=== PATIENT | female | born 1970 | race Caucasian/White ===

== ENCOUNTER 2017-07-17 16:08 | Observation (INO) ==
[2017-07-17] MEDS ORDERED: 0.9 % Sodium Chloride 1,000 ML IVC ONE (17:52)
[2017-07-17] MEDS ORDERED: Vancomycin 1,000 MG in D5% in Water 250 ML IVPB ONE (17:52)
[2017-07-17] MEDS ORDERED: Ondansetron 4 MG/2 ML VIAL IVP ONE (17:53)
[2017-07-17] MEDS ORDERED: *HR* Morphine 2 MG/ML SYRINGE IVP ONE (17:53)
[2017-07-17] MEDS ORDERED: Lidocaine/EPI 1:100k 1% 20 ML VIAL INFILT ONE (17:54)
--- NOTE | 2017-07-17 17:57 | Emergency Department Note ---
Disposition Clinical Impression: Abscess Cellulitis Qualifiers: Site of cellulitis: trunk Site of cellulitis of trunk: groin Qualified Code(s) : L03.314 - Cellulitis of groin Disposition: Admitted As Inpatient Condition: Fair Referrals: Ivy Rivera FEEDER DRIVER [Primary Care Provider] - Forms: ED Satisfaction Letter Time of Disposition: 19:29 General Adult HPI - General Chief complaint: ED Wound/Laceration Stated complaint: "possible infection" Time Seen by Provider: 07/17/17 17:30 Source: patient Mode of arrival: ambulatory Limitations: no limitations Nursing Notes Reviewed: Yes Vital Signs Reviewed: Yes - History of Present Illness HPI Narrative: 46-year-old female with a history of melanoma status post surgery presents for evaluation of a possible abscess and infection. Patient states that she had surgery to remove a melanoma on her back on June 19. States she had a wound VAC placed following that surgery related to the extent of the melanoma. Patient also had bilateral inguinal lymph nodes that were investigated at that time. Patient denies any metastatic lymph nodes. Notes that she has been following up as directed in the wound clinic. States that on Monday redness and swelling in the inguinal region has persisted. States that the swelling and redness has significantly increased in the past 24 hours. Notes worsening pain at that time. Reports subjective fever and chills. Denies any nausea vomiting or abdominal pain. Denies any dysuria or hematuria. No problems with her bowels. Patient is a nondiabetic. Pain Scale: 0 - Related Data Home Medications Medication Instructions Recorded Confirmed OxyCODONE/APAP 5/325 [Percocet 1 each PO AD 07/17/17 07/17/17 5/325 MG] Allergies Allergy/AdvReac Type Severity Reaction Status Date / Time No Known Allergies Allergy Verified 07/17/17 16:27 All systems ED: reviewed and negative except as stated. Constitutional: Reports: as per HPI, fever, chills Eyes: Reports: as per HPI ENT ED: Reports: as per HPI Cardiovascular: Reports: as per HPI. Denies: chest pain Respiratory: Reports: as per HPI. Denies: dyspnea Gastrointestinal: Reports: as per HPI, abdominal pain. Denies: nausea, vomiting Genitourinary: Reports: as per HPI Musculoskeletal: Reports: as per HPI Integumentary: Reports: as per HPI Neurological: Reports: as per HPI Psychiatric: Reports: as per HPI Endocrine: Reports: as per HPI Hematological/Lymphatic: Reports: as per HPI Allergic/Immunologic: Reports: as per HPI Past Medical History - Past Medical History Medical history: Reports: no medical history Surgical history: Reports: cancer surgery Psychiatric history: Reports: no psych history - Social History Smoking Status: Current every day smoker Smokeless Tobacco Status: No Alcohol use: Reports: occasionally Drug use: Reports: none Physical Exam - General Limitations: no limitations General appearance: alert, in no apparent distress - Head Head exam: atraumatic, normocephalic, normal inspection - Eye Eye exam: Present: normal appearance, PERRL, EOMI - ENT ENT exam: normal exam, mucous membranes moist - Neck Neck exam: Present: normal inspection - Chest Chest inspection: Present: normal inspection. Absent: symmetric chest wall rise - Respiratory Respiratory exam: Absent: respiratory distress, accessory muscle use - Cardiovascular Cardiovascular exam: Present: regular rate, normal rhythm - Abdominal Exam Abdominal exam: Present: soft, Non-Tender, other (Diffuse lower area of erythema and warmth and a fluctuant area along the right inguinal region consistent with possible abscess. Healed incision over the right inguinal region.). Absent: distention, guarding, rebound - Extremities Exam Extremities exam: Present: normal inspection. Absent: pedal edema - Back Exam Back exam: Present: other (Functional wound VAC in place.) - Neurological Exam Neurological exam: Present: alert, oriented X3 - Skin Skin exam: Present: warm, dry, intact, normal color Course Course Narrative: Patient seen and examined. The patient's in no acute distress. Patient does have signs and symptoms consistent with cellulitis and likely abscess. Patient' s bedside ultrasound that show a fluid collection which will attempt to be drained in the emergency department. Patient will also receive labs as well as IV antibiotics and symptomatic therapy. Patient would likely need admission given the location and the rapid progression of symptoms. - Reevaluation(s) Reevaluation #1: Patient had the area of concern in size and drained at bedside. Expressed a fair amount of serous fluid. Patient tolerated procedure well. Packing was placed. Given the degree of erythema overlying the area of concern antibiotics were initiated. Patient will be admitted for IV antibacterial therapy. Time: 19:23 Vital Signs Temperature 98.6 F 07/17/17 16:23 Pulse Rate 113 07/17/17 16:23 Respiratory Rate 16 07/17/17 16:23 Blood Pressure 132/91 07/17/17 16:23 O2 Sat by Pulse Oximetry 97 07/17/17 16:23 Temperature 98.6 F 07/17/17 16:23 Pulse Rate 106 07/17/17 19:26 Respiratory Rate 16 07/17/17 19:26 Blood Pressure 128/88 07/17/17 19:26 O2 Sat by Pulse Oximetry 98 07/17/17 19:26 Oxygen Delivery Oxygen Delivery Room Air Procedures - Abscess I/D Consent obtained: verbal consent Site: abdomen Side (if applicable): right Local Anesthetic: lidocaine 1%, with epi Amount of Anesthesia Used (mL): 5 Technique: incised with #11 blade Irrigation: No Packing used?: iodoform Medical Decision Making - MDM Narrative Medical decision making narrative: 46-year-old female presents for evaluation of possible infection. Patient had a procedure done partially a month ago. Patient's concern about infection in her groin. Patient states his symptoms started approximately 2-3 days ago. Notes worsening redness and swelling in the right inguinal region. Swelling and redness has increased significantly. Dysuria the past 24 hours. On bedside ultrasound there is a fluid collection with overlying erythema. Incision and drainage of that collection was performed in the emergency department. Appears to be serous. Packing was placed. Given the location as well as the progression of erythema that the patient describes, the patient would likely need observation with IV antibiotic therapy. The area of cellulitis was outlined with a skin marker. Patient was started on vancomycin. Wound culture was obtained. This may possibly his seroma however with erythema will address it is an abscess until culture comes back negative. Patient is agreeable with plan of care. There is no reason to obtain any advanced imaging at this time. Will treat conservatively unless fails that therapy. - Lab Data Lab results reviewed: Yes I reviewed the patient's lab results. Result diagrams: 07/17/17 18:02 07/17/17 18:02 Lab Results 07/17/17 07/17/17 Range/Units 18:02 18:02 WBC 11.1 (4.3-11.1) K/mcL RBC 4.13 (3.82-4.97) M/mcL Hgb 12.5 (11.5-15.4) g/dL Hct 38.0 (35.3-44.9) % MCV 92.0 (83.0-100.0) fL MCH 30.3 (28.0-33.3) pg MCHC 32.9 (31.6-35.5) g/dL RDW 12.3 (11.5-14.5) % Plt Count 241 (140-400) K/mcL MPV 10.6 (9.4-12.4) fL Immature Gran % 0.5 (0-4) % Seg Neutrophils % 66.2 % Lymphocytes % 23.5 % Monocytes % 7.2 % Eosinophils % 2.2 % Basophils % 0.4 % Neutrophils # 7.4 (1.6-8.9) K/mcL Lymphocytes # 2.6 (0.6-4.6) K/mcL Monocytes # 0.8 (0.0-1.3) K/mcL Eosinophils # 0.2 (0.0-0.6) K/mcL Basophils # 0.0 (0.0-0.2) K/mcL Sodium 139 (136-145) mEq/L Potassium 3.7 (3.5-4.5) mEq/L Chloride 104 (98-109) mEq/L Carbon Dioxide 26 (19-29) mEq/L BUN 10 (7-20) mg/dL Creatinine 0.69 (0.57-1.11) mg/dL Est GFR ( Amer) > 60 (> 60) Est GFR (Non-Af Amer) > 60 (> 60) BUN/Creatinine Ratio 14 (6-26) Glucose 99 (70-99) mg/dL Calculated Osmolality 287 (280-300) Calcium 9.3 (8.6-10.8) mg/dL Total Bilirubin 0.4 (0.2-1.2) mg/dL AST 9 (5-34) Units/L ALT 6 (0-55) Units/L Alkaline Phosphatase 83 (38-126) Units/L Serum Total Protein 7.3 (6.0-8.3) g/dL Albumin 3.2 L (3.5-5.0) g/dL Globulin 4.1 H (2.4-3.5) g/dL Albumin/Globulin Ratio 0.8 L (1.1-2.2) S.B.A.R. - S.B.A.R. Situation: Demographics Background: Presenting Complaint Assessment: Vital Signs, Course and respsone to treatment Recommendation: Barrier(s) to disposition, Recommendation based on pending studies, treatments, or consults Cassandra Report Given to: Dr. Andrew Trujillo Repor Time: 19:29 Attestation Statement - Attestation Attestation: I examined this patient and my medical decision-making was reviewed with the Resident Physician. I agree with the documented findings, disposition and treatment plan as described except to the extent set forth below. Patient to ED complaining of an infection in her groin. Patient reports erythema and a lump in her right groin since Monday. Getting bigger. More painful. He felt febrile but did not check her temperature. Exam shows a moderate size area of fluctuance in the right inguinal area. Erythema extends into the perineum. Plan. I&D was performed. Moderate amount of serous fluid was obtained. Culture sent. Will admit for IV antibiotic.
[2017-07-17 18:15] LABS: Basophils % 0.4 %; Eosinophils # 0.2 K/mcL (0.0-0.6); Eosinophils % 2.2 %; Hemoglobin 12.5 g/dL (11.5-15.4); Immature Granulocytes % 0.5 % (0-4); Lymphocytes # 2.6 K/mcL (0.6-4.6); Lymphocytes % 23.5 %; Mean Corpuscular HGB Conc 32.9 g/dL (31.6-35.5); Mean Corpuscular Hemoglobin 30.3 pg (28.0-33.3); Mean Platelet Volume 10.6 fL (9.4-12.4); Monocytes # 0.8 K/mcL (0.0-1.3); Monocytes % 7.2 %; Neutrophils # 7.4 K/mcL (1.6-8.9); Platelet Count 241 K/mcL (140-400); Red Blood Count 4.13 M/mcL (3.82-4.97); Red Cell Distribution Width 12.3 % (11.5-14.5); Segmented Neutrophils % 66.2 %
[2017-07-17 18:23] LABS: Alanine Aminotransferase 6 Units/L (0-55); Albumin 3.2 g/dL (3.5-5.0); Albumin/Globulin Ratio 0.8 (1.1-2.2); Alkaline Phosphatase 83 Units/L (38-126); Aspartate Amino Transferase 9 Units/L (5-34); BUN/Creatinine Ratio 14 (6-26); Bilirubin,Total 0.4 mg/dL (0.2-1.2); Blood Urea Nitrogen 10 mg/dL (7-20); Calcium 9.3 mg/dL (8.6-10.8); Carbon Dioxide 26 mEq/L (19-29); Chloride 104 mEq/L (98-109); Globulin 4.1 g/dL (2.4-3.5); Glucose 99 mg/dL (70-99); Osmolality,Calculated 287 (280-300); Potassium 3.7 mEq/L (3.5-4.5); Sodium 139 mEq/L (136-145); Total Protein 7.3 g/dL (6.0-8.3); eGFR For African Americans > 60 (> 60); eGFR For Non-African Americans > 60 (> 60)
--- NOTE | 2017-07-17 19:47 | Internal Med History&Physical ---
Date of Encounter: 07/17/17 Time of Encounter: 19:39 Assessment and Plan (1) Cellulitis Current visit: Yes Status: Acute Right grin cellulitis. No leukocytosis. Area of cellulitis was outlined with a skin marker. Wound and blood cultures pending. Continue emperic IV Vancomycin and Zosyn until cultures back, Percocet, Ibuprofen, and monitor labs. Qualifiers: Site of cellulitis: trunk Site of cellulitis of trunk: groin Qualified Code(s): L03.314 - Cellulitis of groin (2) Abscess Current visit: Yes Status: Acute Possible seroma. Patient had ultrasound that showed fluid collection and underwent bedside I&D of right groin in ED which yielded serous fluid. Cultures were collected, packing was placed, and area of cellulitis was outlined with a skin marker. (3) Malignant melanoma of lower back Current visit: Yes Status: Acute Wound vac in place midline L-spine with large 8cm x8cm skin ulceration, dressing C/D/I, no signs of infection. Continue wound care. Patient reports no further resection needed at this time per Dr. Abebe. (4) Tobacco dependence Current visit: Yes Status: Acute Discussed tobacco cessation. (5) DVT prophylaxis Current visit: Yes Status: Acute Heparin TID Internal Medicine - H&P: HPI Admitted From: Home Plans for Post Hospital Care: Home History of present illness: Ms. Lopez is a 46 year old female status post invasive malignant melanoma resection on her back and bilateral inguinal lymph node biopsy on 06/19/[address] Bonita Abebe that presents c/o abscess and infection in right groin. She reports current wound VAC placed in her back following that surgery and has been followed at the wound clinic weekly. Patient's lymph node pathology was negative for metastatic disease. She reports noticing redness and swelling in her right groin for the past 3 days that has significantly increased in the past 24 hours. She reports subjective fever, chills, and pain in groin. Patient had ultrasound that showed fluid collection and underwent bedside I&D of right groin in ED which yielded serous fluid. Cultures were collected, packing was placed, and area of cellulitis was outlined with a skin marker. Patient denies nausea, vomiting, abdominal pain, dysuria, hematuria, exposure to sick contacts , recent travel, or recent illness. Family is at bedside Past Med Surg Social Fam HX - Past Medical History Medical history: no medical history Psychiatric history: no psych history - Past Surgical History Surgical History: cancer surgery, other (BTL, ectopic ) - Social History Smoking Status: Current every day smoker Smokeless Tobacco Status: No Alcohol use: occasionally Drug use: none - Family History Father Family Member Ethnicity: Non- Living Status: Hx Family Cardiac Disorders: Yes Hx Family Respiratory Disorders: No Hx Family Cancer: No Hx Family GI Disorders: No Hx Family Endocrine Disorder: No Hx Family Neuromuscular Disorders: No Hx Family Neurologic Disorders: No Hx Family HEENT Disorders: No Hx Family Autoimmune Disorders: No Mother Hx Family Cardiac Disorders: Yes Hx Family Cancer: Yes Internal Medicine - H&P: Meds OxyCODONE/APAP 5/325 [Percocet 5/325 MG] 1 each PO AD 07/17/17 [History] 3 Allergy/AdvReac Type Severity Reaction Status Date / Time No Known Allergies Allergy Verified 07/17/17 16:27 All Systems PM: A 10-system review of systems was performed and is negative for pertinent findings except as documented above in the HPI. - Constitutional Constitutional: chills, fever(s), no weight gain, no weight loss - EENT Eyes: no blurry vision, no change in vision Nose, mouth and throat: no nasal congestion, no sore throat - Cardiovascular Cardiovascular ROS IM: no chest pain, no diaphoresis, no lightheadedness, no palpitations - Respiratory Respiratory: no cough, no dyspnea, no chest congestion - Gastrointestinal Gastrointestinal: no abdominal pain, no diarrhea, no nausea, no vomiting - Genitourinary Genitourinary: pelvic pain, no dysuria, no urinary frequency, no urinary urgency - Musculoskeletal Musculoskeletal ROS IM: no back pain, no muscle weakness, no numbness, no tingling - Integumentary Integumentary IM: erythema, new lesions, skin ulcer, sores - Neurological Neurological ROS: no confusion, no dizziness, no focal weakness, no numbness, no weakness - Psychiatric Psychiatric: no anxiety, no depression - Constitutional Vitals: Temp Pulse Resp BP Pulse Ox 98.6 F 106 16 128/88 98 07/17/17 16:23 07/17/17 19:26 07/17/17 19:26 07/17/17 19:26 07/17/17 19:26 General appearance: Present: A&O X 3, pleasant, no acute distress, answers questions appropriately - Head Head exam: Present: atraumatic, normal inspection, normocephalic - Eye Eye exam: Present: EOMI, PERRL - ENT ENT exam: Present: mucous membranes moist, normal oropharynx - Neck Neck exam general surgery: Present: full ROM, normal inspection, supple. Absent : lymphadenopathy - Respiratory Respiratory exam: Present: CTAB. Absent: respiratory distress, rhonchi, wheezes - Cardiovascular Cardiovascular exam: Present: RRR, +S1, +S2 - GI/Abdominal GI/Abdominal exam: Present: normal bowel sounds, soft. Absent: guarding, mass, rebound, rigid, tenderness - Extremities Exam Extremities exam: Present: full ROM, warm. Absent: pedal edema - Incison Incision: Present: red, swollen, inflamed, erythema, serous, open Comments: Erythema and warmth along the right inguinal region spreading across suprapubic region. Area of erythema outlined with skin marker and dressing C/D/I. Healed incision over the left inguinal region. Wound vac in place midline L-spine with large 8cm x8cm skin ulceration, dressing C/D/I, no signs of infection. - Back Exam Back exam: Present: tenderness Additional comments: Wound vac in place midline L-spine with large 8cm x8cm skin ulceration, dressing C/D/I, no signs of infection. - Neurological Exam Neurological exam: Present: alert, CN II-XII intact, oriented X3, strengths equal and symetr throughout. Absent: altered - Psychiatric Psychiatric exam: Present: normal affect, normal mood - Skin Skin exam: Present: dry, erythema, warm Additional comments: Wound vac in place midline L-spine with large 8cm x8cm skin ulceration, dressing C/D/I, no signs of infection. Internal Med - H&P Results - Labs CBC & Chem 7: 07/17/17 18:02 07/17/17 18:02
[2017-07-17] MEDS ORDERED: Naloxone 0.4 MG/ML INJ IVP PRN (20:33)
[2017-07-17] MEDS ORDERED: *HR* OxyCODONE/APAP 5/325 TABLET PO SCH (20:45)
[2017-07-17] MEDS ORDERED: Vancomycin 1,000 MG in D5% in Water 250 ML IVPB SCH (21:00)
--- NOTE | 2017-07-17 22:58 | Event Note ---
Date of Encounter: 07/17/17 Time of Encounter: 22:58 Patient seen and examined with medical receptionist assistant. Agree with assessment and plan
[2017-07-17] MEDS ORDERED: *HR* OxyCODONE/APAP 5/325 TABLET PO PRN (23:27)
[2017-07-17] MEDS: *HR* Heparin 5,000 UNIT/ML VIAL SQ SCH (23:31)
[2017-07-17] MEDS: Piperacillin/Tazobactam 3.375 GM in D5% in Water (Mini-Bag+) 100 ML IVPB SCH (23:31)
[2017-07-18] MEDS: Ibuprofen 400 MG TABLET PO SCH ×4 (03:14→18:09)
[2017-07-18 04:31] LABS: Basophils % 0.4 %; Eosinophils # 0.3 K/mcL (0.0-0.6); Eosinophils % 3.2 %; Hemoglobin 11.7 g/dL (11.5-15.4); Immature Granulocytes % 0.4 % (0-4); Lymphocytes # 2.2 K/mcL (0.6-4.6); Lymphocytes % 27.5 %; Mean Corpuscular HGB Conc 32.5 g/dL (31.6-35.5); Mean Corpuscular Hemoglobin 30.2 pg (28.0-33.3); Mean Corpuscular Volume 92.8 fL (83.0-100.0); Monocytes # 0.5 K/mcL (0.0-1.3); Monocytes % 6.6 %; Neutrophils # 4.9 K/mcL (1.6-8.9); Platelet Count 225 K/mcL (140-400); Red Blood Count 3.88 M/mcL (3.82-4.97); Red Cell Distribution Width 12.2 % (11.5-14.5); Segmented Neutrophils % 61.9 %
[2017-07-18 04:44] LABS: BUN/Creatinine Ratio 16 (6-26); Blood Urea Nitrogen 11 mg/dL (7-20); Calcium 8.6 mg/dL (8.6-10.8); Carbon Dioxide 24 mEq/L (19-29); Chloride 109 mEq/L (98-109); Glucose 98 mg/dL (70-99); Osmolality,Calculated 291 (280-300); Potassium 3.6 mEq/L (3.5-4.5); Sodium 141 mEq/L (136-145); eGFR For African Americans > 60 (> 60); eGFR For Non-African Americans > 60 (> 60)
[2017-07-18] MEDS: *HR* Heparin 5,000 UNIT/ML VIAL SQ SCH ×3 (05:41→21:43)
[2017-07-18] MEDS: Famotidine 20 MG/2 ML VIAL IVP SCH ×2 (05:41→18:09)
[2017-07-18] MEDS: Vancomycin 1,000 MG in D5% in Water 250 ML IVPB SCH ×2 (05:41→18:09)
[2017-07-18] MEDS: Piperacillin/Tazobactam 3.375 GM in D5% in Water (Mini-Bag+) 100 ML IVPB SCH ×2 (10:58→15:25)
--- NOTE | 2017-07-18 18:31 | Internal Med Progress Note ---
Date of Encounter: 07/18/17 Time of Encounter: 18:28 - Assessment and plan (1) Cellulitis Current Visit: Yes Status: Acute Qualifiers: Site of cellulitis: trunk Site of cellulitis of trunk: groin Qualified Code(s): L03.314 - Cellulitis of groin (2) Malignant melanoma of lower back Current Visit: Yes Status: Acute (3) H/O melanoma excision Current Visit: No Status: Acute - Subjective Interval history: Patient is 46-year-old female who recently had malignant melanoma removed from her back and also had explatory right inguinal lymph nodes removed. She has come in with cellulitis and right inguinal and pubic area without any discharge. During this visit her boyfriend was present. Patient right inguinal area does not show any significant redness. Considering critical nature of his infectious disease to give their opinion that if we need to continue MRSA coverage - Constitutional Vitals: Temp Pulse Resp BP Pulse Ox 98.1 F 82 16 116/69 98 07/18/17 15:28 07/18/17 15:28 07/18/17 15:28 07/18/17 15:28 07/18/17 15:28 General appearance: Present: A&O X 3, pleasant, no acute distress, answers questions appropriately - Head Head exam: Present: atraumatic, normocephalic - Eye Eye exam: Present: PERRL, conjuntiva pink, sclera anicteric Pupils: Present: PERRL - Neck Neck exam general surgery: Present: supple, trachea midline. Absent: lymphadenopathy - Respiratory Respiratory exam: Present: CTAB. Absent: accessory muscle use, rales, rhonchi, wheezes - Cardiovascular Cardiovascular exam: Present: RRR, +S1, +S2. Absent: diastolic murmur, gallop, rubs, systolic murmur - GI/Abdominal GI/Abdominal exam: Present: normal bowel sounds, soft, no peritoneal signs. Absent: distended, tenderness - Additional comments: Right inguinal and pubic area shows no significant redness. She has dressing on the area where right inguinal lymph nodes were removed. No discharge. - Extremities Exam Extremities exam: Present: warm, radial pulses palpable and symmetrical. Absent : calf tenderness, cyanotic, pedal edema - Neurological Exam Neurological exam: Present: CN II-XII intact, oriented X3, no focal deficits. Absent: pronater drift, facial droop, speech deficit - Skin Skin exam: Present: dry, intact Internal Medicine: Result - Labs CBC & Chem 7: 07/18/17 03:48 07/18/17 03:48 Consult Discharge Plan - Plan Referrals: Ivy Rivera, VICE PRESIDENT OF PROCUREMENT [Primary Care Provider] -
[2017-07-19] MEDS: Piperacillin/Tazobactam 3.375 GM in D5% in Water (Mini-Bag+) 100 ML IVPB SCH ×3 (00:47→16:50)
[2017-07-19] MEDS: Ibuprofen 400 MG TABLET PO SCH (01:00)
[2017-07-19] MEDS ORDERED: Ibuprofen 400 MG TABLET PO PRN (03:54)
[2017-07-19] MEDS: Famotidine 20 MG/2 ML VIAL IVP SCH ×2 (06:50→16:50)
[2017-07-19] MEDS: Vancomycin 1,000 MG in D5% in Water 250 ML IVPB SCH (06:50)
[2017-07-19] MEDS: *HR* Heparin 5,000 UNIT/ML VIAL SQ SCH ×3 (06:50→21:54)
[2017-07-19] MEDS ORDERED: *HR* OxyCODONE/APAP 5/325 TABLET PO ONE (09:17)
--- NOTE | 2017-07-19 10:21 | Internal Med Progress Note ---
Date of Encounter: 07/19/17 Time of Encounter: 10:21 - Assessment and plan (1) Cellulitis Current Visit: Yes Status: Acute Qualifiers: Site of cellulitis: trunk Site of cellulitis of trunk: groin Qualified Code(s): L03.314 - Cellulitis of groin (2) Malignant melanoma of lower back Current Visit: Yes Status: Acute (3) H/O melanoma excision Current Visit: No Status: Acute - Subjective Interval history: Patient is 46-year-old female who recently had malignant melanoma removed from her back and also had explatory right inguinal lymph nodes removed. She has come in with cellulitis and right inguinal and pubic area without any discharge. During this visit her boyfriend was present. Patient right inguinal area does not show any significant redness. Considering critical nature of his infectious disease to give their opinion that if we need to continue MRSA coverage - Constitutional Vitals: Temp Pulse Resp BP Pulse Ox 98.2 F 74 16 123/82 98 07/19/17 06:30 07/19/17 06:30 07/19/17 06:30 07/19/17 06:30 07/19/17 06:30 General appearance: Present: A&O X 3, pleasant, no acute distress, answers questions appropriately - Head Head exam: Present: atraumatic, normocephalic - Eye Eye exam: Present: PERRL, conjuntiva pink, sclera anicteric Pupils: Present: PERRL - Neck Neck exam general surgery: Present: supple, trachea midline. Absent: lymphadenopathy - Respiratory Respiratory exam: Present: CTAB. Absent: accessory muscle use, rales, rhonchi, wheezes - Cardiovascular Cardiovascular exam: Present: RRR, +S1, +S2. Absent: diastolic murmur, gallop, rubs, systolic murmur - GI/Abdominal GI/Abdominal exam: Present: normal bowel sounds, soft, no peritoneal signs. Absent: distended, tenderness - Extremities Exam Extremities exam: Present: warm, radial pulses palpable and symmetrical. Absent : calf tenderness, cyanotic, pedal edema - Neurological Exam Neurological exam: Present: CN II-XII intact, oriented X3, no focal deficits. Absent: pronater drift, facial droop, speech deficit - Skin Skin exam: Present: dry, intact Internal Medicine: Result - Labs CBC & Chem 7: 07/18/17 03:48 09/12/17 03:48 Consult Discharge Plan - Plan Referrals: Ivy Rivera CNP [Primary Care Provider] -
--- NOTE | 2017-07-19 10:31 | Internal Med Progress Note ---
Date of Encounter: 07/19/17 Time of Encounter: 10:30 - Assessment and plan (1) Cellulitis Current Visit: Yes Status: Acute Qualifiers: Site of cellulitis: trunk Site of cellulitis of trunk: groin Qualified Code(s): L03.314 - Cellulitis of groin (2) Malignant melanoma of lower back Current Visit: Yes Status: Acute (3) H/O melanoma excision Current Visit: No Status: Acute - Subjective Interval history: Patient is 46-year-old female who recently had malignant melanoma removed from her back and also had explatory right inguinal lymph nodes removed. She has come in with cellulitis and right inguinal and pubic area without any discharge. During this visit her boyfriend was present. Patient right inguinal area does not show any significant redness. Appreciate infectious disease input and plan to continue IV vancomycin and Zosyn. Will check with infectious disease when will be the time to transition her to oral medication including Augmentin and the Bactrim and discharged the patient. - Constitutional Vitals: Temp Pulse Resp BP Pulse Ox 98.2 F 74 16 123/82 98 07/19/17 06:30 07/19/17 06:30 07/19/17 06:30 07/19/17 06:30 07/19/17 06:30 General appearance: Present: A&O X 3, pleasant, no acute distress, answers questions appropriately - Head Head exam: Present: atraumatic, normocephalic - Eye Eye exam: Present: PERRL, conjuntiva pink, sclera anicteric Pupils: Present: PERRL - Neck Neck exam general surgery: Present: supple, trachea midline. Absent: lymphadenopathy - Respiratory Respiratory exam: Present: CTAB. Absent: accessory muscle use, rales, rhonchi, wheezes - Cardiovascular Cardiovascular exam: Present: RRR, +S1, +S2. Absent: diastolic murmur, gallop, rubs, systolic murmur - GI/Abdominal GI/Abdominal exam: Present: normal bowel sounds, soft, no peritoneal signs. Absent: distended, tenderness Additional comments: Right groin area is covered with the dressing. No significant red surrounding redness or tenderness. - Extremities Exam Extremities exam: Present: warm, radial pulses palpable and symmetrical. Absent : calf tenderness, cyanotic, pedal edema - Neurological Exam Neurological exam: Present: CN II-XII intact, oriented X3, no focal deficits. Absent: pronater drift, facial droop, speech deficit - Skin Skin exam: Present: dry, intact Internal Medicine: Result - Labs CBC & Chem 7: 07/18/17 03:48 07/18/17 03:48 Consult Discharge Plan - Plan Referrals: Ivy Rivera, ROUNDING MACHINE TENDER [Primary Care Provider] -
[2017-07-19] MEDS ORDERED: *HR* HYDROmorphone (PF) 1 MG/ML SYRINGE IVP ONE (14:29)
[2017-07-19] MEDS ORDERED: *HR* HYDROmorphone (PF) 1 MG/ML SYRINGE ONE (14:32)
[2017-07-19] MEDS ORDERED: Ondansetron 4 MG/2 ML VIAL ONE (14:43)
[2017-07-19] MEDS ORDERED: Ondansetron 4 MG/2 ML VIAL IVP ONE (14:50)
--- NOTE | 2017-07-19 15:16 | Infectious Disease Consult ---
Date of Encounter: 07/19/17 Time of Encounter: 15:13 Assessment and Plan (1) Cellulitis Status: Acute Assessment and plan: Location: Right groin, right upper thigh, right lower abdomen, extending over to the pubic area. Causative organism unclear. Secondary to recent lymph node biopsy. Improved 90% per patient report. General Surgery team consulted and following. Seropurulent drainage with area of fluctuance noted. Case discussed with Delilah Smith CNP with the surgery team. Continue wound care per the surgery team's recommendations. Continue Vancomycin IV. Pharmacy to dose. Goal trough ~15. Continue Zosyn 3.375 grams IV Q8H. Duration of treatment depends on the clinical picture, but would recommend a total of 14 days of treatment. Can consider switching to Bactrim and Levaquin on discharge to complete course of treatment. Monitor renal function and for drug toxicity and dose-adjust antibiotics. Qualifiers: Site of cellulitis: trunk Site of cellulitis of trunk: groin Qualified Code(s): L03.314 - Cellulitis of groin (2) Abscess Status: Acute Assessment and plan: Location: Right groin. Status post bedside I & D by the ED physician. Continue wound care per the surgery team recommendations. (3) Melanoma of back Status: Acute Assessment and plan: Status post excision with inguinal lymph node biopsy 06/19/17. Follows with Dr. Abebe in the wound care center. (4) H/O melanoma excision Status: Acute (5) Status post lymph node biopsy Status: Acute (6) Tobacco dependence Status: Acute Infectious Disease HPI - Data of Consult Patient: new to practice Consult date: 07/19/17 Requesting Physician: Rosemary Delaney Primary Care Provider: Ivy Rivera, - Consult Narrative Reason for consult: Right groin cellulitis History of present illness: Ms. Lopez is a 46 year old female with history of malignant melanoma status post excision with lymph node biopsy June 19, 2017. The patient was admitted to the hospital July 17 for right groin cellulitis. We are consulted of July 19 for further treatment recommendations regarding right groin cellulitis. The patient is a 46-year-old female with a past medical history as stated above. The patient was diagnosed with malignant melanoma in June and subsequently underwent excision of the melanoma from her back. At the same time , she underwent bilateral inguinal node resection for biopsy. The patient did well postoperatively and her lymph node biopsies came back negative. She states that on Monday she started to have increasing pain and swelling and redness to the right groin. She also reports generalized malaise, fatigue, and achiness. She states she is very tired and all she wanted to do was sleep. She states the redness and pain and swelling progressed very rapidly. She was seen in the wound clinic on Monday and instructed to come to the emergency department for admission. Upon arrival, the patient was afebrile, but she was tachycardic. Laboratory studies were normal. The ER physician did a bedside ultrasound and noted a small fluid collection which was incised and debrided and a wound culture was obtained and was negative. She was started on IV vancomycin and IV Zosyn. She was admitted to the hospital for further evaluation. Since admission, the patient has remained afebrile and hemodynamically stable. Her white blood cell count has remained normal. She states that she is improved about 90%. Surgery team was consulted and has been providing wound care. Currently, the patient is on IV vancomycin and IV Zosyn. We've been asked to evaluate and make further recommendations. Exam today, the patient states that overall she feels much better. She reports subjective fevers at home. She denies any chills or rigors. She reports chronic headache and neck aches. She reports generalized malaise, fatigue, and achiness which she describes as feeling flulike. She denied any congestion, earache, or sore throat. She denied any chest pain, shortness of breath, or cough. She reported nausea with poor by mouth intake because she was so tired. She denied any vomiting, diarrhea, or constipation. The abdominal pain or urinary complaints. She denies any pain in her back and states that the cellulitis did not seem to communicate with the surgical incision on her back. She denies any drainage from the right groin surgical site prior to admission. CC: Rosemary Delaney Past Med Surg Social Fam HX - Past Medical History Attestation: Yes The following information was validated with the patient. Source: patient, old records reviewed, nursing notes reviewed Medical history: cancer (Malignant melanoma) Psychiatric history: no psych history - Past Surgical History Surgical History: cancer surgery (Malignant melanoma with lymph node resection ), other (BTL, ectopic ) - Social History Smoking Status: Current every day smoker Packs per day: 0.5 Smokeless Tobacco Status: No Alcohol use: occasionally Drug use: none Occupational status: employed Current living situation: Home - Independent Activity Level: Independent ambulation Recent Out of Country Travel Within the Last 8 Weeks: No Exposure or Possible Exposure to Illness During Travel: No - Family History Father Family Member Ethnicity: Non- Living Status: Hx Family Cardiac Disorders: Yes Hx Family Respiratory Disorders: No Hx Family Cancer: No Hx Family GI Disorders: No Hx Family Endocrine Disorder: No Hx Family Neuromuscular Disorders: No Hx Family Neurologic Disorders: No Hx Family HEENT Disorders: No Hx Family Autoimmune Disorders: No Mother Hx Family Cardiac Disorders: Yes Hx Family Cancer: Yes Infectious Disease-CN:Meds OxyCODONE/APAP 5/325 [Percocet 5/325 MG] 1 each PO AD 07/17/17 [History] 3 Allergy/AdvReac Type Severity Reaction Status Date / Time No Known Allergies Allergy Verified 07/17/17 16:27 All systems: reviewed and no additional remarkable complaints except as stated Exam - Constitutional Vitals: Temp Pulse Resp BP Pulse Ox 98.4 F 93 16 121/80 99 07/19/17 14:32 07/19/17 14:32 07/19/17 14:32 07/19/17 14:32 07/19/17 14:32 General appearance: average body habitus, cooperative, no acute distress - Head Head exam: Present: atraumatic, normal inspection, normocephalic - Eye Eye exam: Present: EOMI, normal appearance, PERRL Pupils: Present: normal accommodation - ENT ENT exam: Present: mucous membranes moist - Neck Neck exam: Present: normal inspection - Respiratory Respiratory exam: Present: CTAB. Absent: rales, respiratory distress, rhonchi, wheezes - Cardiovascular Cardiovascular exam: Present: RRR, +S1, +S2 - GI/Abdominal GI/Abdominal exam: Present: normal bowel sounds, soft. Absent: distended, tenderness - Extremities Exam Extremities exam: Present: normal inspection. Absent: joint swelling, pedal edema, tenderness - Expanded Lower Extremity Exam 1 - Lymph node resection incision well-healed without erythema, warmth, tenderness, fluctuance, or drainage. 2 - Lymph node resection incision drainage large amount of seropurulent drainage. Tenderness noted with palpation. Fluctuance noted. Mild erythema noted. 3 - Mild erythema noted. No warmth or tenderness noted. 4 - I & D site with packing noted. No active drainage noted at this time. - Back Exam Back exam: Absent: normal inspection (Surgical wound noted to the middle of the lower back with wound VAC dressing intact and sponge well-compressed. No surrounding warmth, tenderness, or erythema noted.) - Neurological Exam Neurological exam: Present: alert, oriented X3, no focal deficits - Psychiatric Psychiatric exam: Present: normal affect, normal mood - Skin Skin exam: Present: dry, intact, normal color, warm Infectious Disease CN: Results - Labs CBC & Chem 7: 07/18/17 03:48 07/18/17 03:48 Cultures: Cultures 07/17/17 18:02 Blood Culture - Preliminary Peripheral Venipuncture No growth. 07/17/17 18:02 Blood Culture - Preliminary Peripheral Venipuncture No growth. 07/17/17 19:00 Wound Culture - Preliminary Abdomen No growth. Consult Discharge Plan - Plan Referrals: Ivy Rivera OCCUPATIONAL HEALTH PROFESSIONAL [Primary Care Provider] -
[2017-07-19] MEDS: Vancomycin 1,250 MG in D5% in Water 250 ML IVPB SCH (17:47)
[2017-07-20] MEDS: Piperacillin/Tazobactam 3.375 GM in D5% in Water (Mini-Bag+) 100 ML IVPB SCH ×2 (00:22→08:46)
[2017-07-20] MEDS: *HR* Heparin 5,000 UNIT/ML VIAL SQ SCH ×2 (05:39→14:51)
[2017-07-20] MEDS: Famotidine 20 MG/2 ML VIAL IVP SCH (05:39)
[2017-07-20] MEDS: Vancomycin 1,250 MG in D5% in Water 250 ML IVPB SCH (05:40)
--- NOTE | 2017-07-20 10:17 | Discharge Summary ---
Date of Encounter: 07/20/17 Time of Encounter: 10:15 - Discharge Diagnosis (1) Cellulitis Priority: Primary Status: Acute Qualifiers: Site of cellulitis: trunk Site of cellulitis of trunk: groin Qualified Code(s): L03.314 - Cellulitis of groin (2) Malignant melanoma of lower back Priority: Secondary Status: Acute (3) H/O melanoma excision Priority: Secondary Status: Acute - Discharge Medications Prescriptions: Sulfamethoxazole/Trimeth DS [Bactrim DS] 1 each PO BID #20 tablet Home Medications: OxyCODONE/APAP 5/325 [Percocet 5/325 MG] 1 each PO AD 07/17/17 [History] Sulfamethoxazole/Trimeth DS [Bactrim DS] 1 each PO BID #20 tablet 07/20/17 [Rx] Allergies/Adverse Reactions: 3 Allergy/AdvReac Type Severity Reaction Status Date / Time No Known Allergies Allergy Verified 07/17/17 16:27 Date of admission: 07/17/17 19:37 Primary care physician: Ivy Rivera, Consults: 07/17/17 20:33 Consult to Wound Care [CONS] Routine Reason for Consult: right groin wound, back wound vac Call Completed: No 07/18/17 18:26 Consult to Infectious Diseases [CONS] Routine Consulting Provider: Infectious Disease Karina Reason for Consult: Cellulitis Time Notified: 13:26 Call Completed: Yes 07/19/17 17:19 Consult to Manager Med Surg [CONS] Routine Reason for SW Consult: Home health needed for wound vac Discharging clinician: Laureen Cortez - Patient Status Disposition: Home, Self-Care Condition: Good Overall status at discharge: patient is progressing back to baseline - Discharge Instructions Follow Up With: Ivy Rivera, [employer] [Primary Care Provider] - - Diet and Activity Activity: resume usual activities as tolerated Diet: advance to your usual diet Hospital course: Ms. Lopez is 46-year-old female who recently had malignant melanoma removed from her back and also had explatory right inguinal lymph nodes removed. She has come in with cellulitis in right inguinal and pubic area without any discharge. Patient right inguinal area does not show any significant redness. Infectious disease was consulted while she was treated with IV vancomycin and Zosyn. Infectious disease requested general surgery to see the patient. I did discuss the case with Dr. Abebe this morning who recommended to discharge the patient and she will be seeing her in office and 2 days. She has also recommended to discharge patient on Bactrim only and she will follow the patient. Patient has been notified about adjustment in antibiotics and a need to follow renal function while she is on Bactrim. This can be done through Dr. Abebe's office as well has her family physician's office. Patient to see family physician next week. - Time Spent with Patient Total time spent providing and/or coordinating discharge services: Greater than 30 minutes - Constitutional Vitals: Temp Pulse Resp BP Pulse Ox 98.5 F 66 16 119/74 99 07/20/17 06:50 07/20/17 06:50 07/20/17 06:50 07/20/17 06:50 07/20/17 06:50 General appearance: Present: A&O X 3, pleasant, no acute distress, answers questions appropriately - Head Head exam: Present: atraumatic, normocephalic - Eye Eye exam: Present: PERRL, conjuntiva pink, sclera anicteric Pupils: Present: PERRL - Neck Neck exam general surgery: Present: supple, trachea midline. Absent: lymphadenopathy - Respiratory Respiratory exam: Present: CTAB. Absent: accessory muscle use, rales, rhonchi, wheezes - Cardiovascular Cardiovascular exam: Present: RRR, +S1, +S2. Absent: diastolic murmur, gallop, rubs, systolic murmur - GI/Abdominal GI/Abdominal exam: Present: normal bowel sounds, soft, no peritoneal signs. Absent: distended, tenderness - Extremities Exam Extremities exam: Present: warm, radial pulses palpable and symmetrical. Absent : calf tenderness, cyanotic, pedal edema Additional comments: No significant redness swelling or discharge in right inguinal area. - Neurological Exam Neurological exam: Present: CN II-XII intact, oriented X3, no focal deficits. Absent: pronater drift, facial droop, speech deficit - Skin Skin exam: Present: dry, intact
[2017-07-20] MEDS ORDERED: *HR* OxyCODONE/APAP 5/325 TABLET PO ONE (10:54)
--- NOTE | 2017-07-20 14:31 | Infectious Disease Progress No ---
Date of Encounter: 07/20/17 Time of Encounter: 14:29 - Assessment and Plan (1) Cellulitis Current Visit: Yes Status: Acute Location: Right groin, right upper thigh, right lower abdomen, extending over to the pubic area. Causative organism unclear. Secondary to recent lymph node biopsy. Continues to improve. General Surgery team consulted and following. Seropurulent drainage with area of fluctuance improved. Continue wound care per the surgery team's recommendations. Continue Vancomycin IV. Pharmacy to dose. Goal trough ~15. Continue Zosyn 3.375 grams IV Q8H. Duration of treatment depends on the clinical picture, but would recommend a total of 14 days of treatment. Can consider switching to Bactrim and Levaquin on discharge to complete course of treatment. Monitor renal function and for drug toxicity and dose-adjust antibiotics. Qualifiers: Site of cellulitis: trunk Site of cellulitis of trunk: groin Qualified Code(s): L03.314 - Cellulitis of groin (2) Abscess Current Visit: Yes Status: Acute Location: Right groin. Status post bedside I & D by the ED physician. Continue wound care per the surgery team recommendations. (3) Melanoma of back Current Visit: No Status: Acute Status post excision with inguinal lymph node biopsy 06/19/17. Follows with Dr. Abebe in the wound care center. (4) H/O melanoma excision Current Visit: No Status: Acute (5) Status post lymph node biopsy Current Visit: Yes Status: Acute (6) Tobacco dependence Current Visit: Yes Status: Acute - Subjective Interval history: Patient seen and examined. No acute events noted overnight. Patient states she feels well and is ready to go home. Denies fevers, chills, or rigors. Denies chest pain, shortness of breath, or cough. Denies nausea, vomiting, or diarrhea. Denies abdominal pain or urinary complaints. She states her appetite is good. Denies oral thrush of skin lesions. States the pain and swelling at the site of the infection is markedly improved. She reports there continues to be serous drainage from the right groin. Infect Dis PN-Objective Data - Labs CBC & Chem 7: 07/18/17 03:48 07/18/17 03:48 Exam - Constitutional Vitals: Temp Pulse Resp BP Pulse Ox 98.3 F 77 16 114/75 98 07/20/17 11:23 07/20/17 11:23 07/20/17 11:23 07/20/17 11:23 07/20/17 11:23 General appearance: average body habitus, cooperative, no acute distress - Head Head exam: Present: atraumatic, normal inspection, normocephalic - Eye Eye exam: Present: EOMI, normal appearance, PERRL Pupils: Present: normal accommodation - ENT ENT exam: Present: mucous membranes moist - Neck Neck exam: Present: normal inspection - Respiratory Respiratory exam: Present: CTAB. Absent: rales, respiratory distress, rhonchi, wheezes - Cardiovascular Cardiovascular exam: Present: RRR, +S1, +S2 - GI/Abdominal GI/Abdominal exam: Present: normal bowel sounds, soft. Absent: distended, tenderness - Extremities Exam Extremities exam: Present: normal inspection. Absent: joint swelling, pedal edema, tenderness Additional comments: Right groin erythema, warmth, and swelling continues to improve. Right groin surgical site continues to drain serous fluid. Right groin I & D site with packing noted. Area of fluctuance smaller today. Remains tender to palpation. - Back Exam Additional comments: Previous surgical site with wound vac dressing C/D/I with sponge well- compressed. No surrounding warmth, erythema, or tenderness noted. - Neurological Exam Neurological exam: Present: alert, oriented X3, no focal deficits - Psychiatric Psychiatric exam: Present: normal affect, normal mood - Skin Skin exam: Present: dry, intact, normal color, warm Consult Discharge Plan - Plan Referrals: Ivy Rivera CNP [Primary Care Provider] - Prescriptions: Sulfamethoxazole/Trimeth DS [Bactrim DS] 1 each PO BID #20 tablet
[2017-07-20 14:45] VITALS: BP 111/71
[2017-07-20] MEDS ORDERED: Aminoglycoside Consult 1 EACH MC ONE (15:40)
--- NOTE | 2017-07-20 17:24 | Physician Discharge Referral ---
Home Health/Hosp Referral Info Transfer to: Home Health Attending Provider: gely Provider in Charge Post Discharge: PCP - Diagnosis (1) Cellulitis Status: Acute (2) Malignant melanoma of lower back Status: Acute (3) H/O melanoma excision Status: Acute - Respiratory Orders Smoking Cessation: Smoking cessation has been advised. For more information, call the [place] Tobacco Quit Line at 0-317-SAIQ-NOW. - Services Needed Following services are medically necessary services: [facility] Care Orders: wound care post op melanoma - Transfer Medications Prescriptions: Sulfamethoxazole/Trimeth DS [Bactrim DS] 1 each PO BID #20 tablet Home Medications: OxyCODONE/APAP 5/325 [Percocet 5/325 MG] 1 each PO AD 07/17/17 [History] Sulfamethoxazole/Trimeth DS [Bactrim DS] 1 each PO BID #20 tablet 07/20/17 [Rx] Allergies/Adverse Reactions: 3 Allergy/AdvReac Type Severity Reaction Status Date / Time No Known Allergies Allergy Verified 07/17/17 16:27 Certification: Further, I certify that my clinical findings support that this patient is homebound (i.e. absences from home require considerable and taxing effort and are for medical reasons or judaism services or infrequently or short duration when for other reasons) because: Homebound Reason: Post-surgery restriction and or conditions limit ability to leave home Attestation: My signature below is to certify that this patient is under my care and that I, or nurse practitioner, or a physician's human resources benefits assistant working with me, has a face-to -face encounter with this patient.
[2017-07-20] MEDS ORDERED: Famotidine 20 MG TABLET PO SCH (18:00)
== END 2017-07-20 15:41 | disposition home or self-care (01) ==
LOC: EMEROO 16:08 → 3BNU 16:08
PROVIDERS: ADMIT Nurse Practitioner Family; ATTEND Nurse Practitioner Family